=== PATIENT | female | born 1955 | race Caucasian/White ===

== ENCOUNTER 2016-10-08 18:58 | Inpatient (IN) | payer MEDICARE ==
--- NOTE | ~2016-10-08 | EKG ---
PATIENT: DAMON LEVI UNIT #: [id number] Ventricular Rate: 58 BPM Atrial Rate: 58 BPM P-R Interval: 176 ms QRS Duration: 112 ms Q-T Interval: 492 ms QTC Calculation(Bezet): 482 ms P [place]: 14 degrees Calculated R [place]: -9 degrees Calculated T [place]: 93 degrees Diagnosis Line: Sinus bradycardia Diagnosis Line: Abnormal QRS-T angle, consider primary T wave Diagnosis Line: abnormality Diagnosis Line: Abnormal ECG Diagnosis Line: Diagnosis Line: Confirmed by RUCHI YEN MD ([id number]) on Diagnosis Line: 10/10/2016 11:06:28 AM INTERPRETING MD: YOVANA CASTRO
--- NOTE | ~2016-10-08 | CT71 ---
[facility] A Service of [facility] RADIOLOGY TEXT RESULTS PATIENT: DAMON LEVI LOCATION: C4 457-01 : 53 UNIT #: [id number] AGE: [address]: Abiola Gibbs MD SEX: F ORDER DR: [id number] [facility] [address] [place], [place] [address] [id number] MR#: [id number] Acc #: [id number] NAME: DAMON LEVI. : 1955 SEX: F STUDY DATE/TIME: 10/08/2016 20:30 UNIT: CEDOF ROOM: [id number] STUDY DESCRIPTION: CT Head Wo Contrast Attending Physician: Cayla Ramires M.D. Ordering Physician: Jeovanny Jacobson M.D. Primary Care Physician: No Primary Care Physician MEDICAL IMAGING REPORT This report is preliminary unless electronic signature is present EXAM Head CT without contrast, 10/08/2016. HISTORY Altered mental status today, decreased level of consciousness, unresponsive with tremors beginning today. TECHNIQUE This CT exam was performed with one or more of the following radiation dose reduction techniques: automatic exposure control, adjustment of mA and/or kV according to patient size, and iterative reconstruction. FINDINGS Axial images of the brain obtained without contrast show generalized atrophy. There are chronic ischemic changes seen around the ventricles. There is no evidence of mass effect, hemorrhage, or edema and no midline shift is seen. No acute changes are noted. IMPRESSION Atrophy with chronic ischemic changes. No acute changes are seen. Dictated by... John Chicas M.D. THIS IS AN ELECTRONICALLY VERIFIED REPORT John Chicas M.D. at 10/09/2016 2:16 PM SHELL/donte TD: 10/09/2016 04:34 JOB #: [id number] [facility] A Service of [facility] RADIOLOGY TEXT RESULTS PATIENT: DAMON LEVI LOCATION: C4 457-01 : 53 UNIT #: [id number] AGE: [address]: Abiola Gibbs MD SEX: F ORDER DR: MEDICAL IMAGING REPORT Page 1 of 1 COPY
--- NOTE | ~2016-10-08 | CR72 ---
[facility] A Service of [facility] RADIOLOGY TEXT RESULTS PATIENT: DAMON LEVI LOCATION: [place] [address] : 53 UNIT #: [id number] AGE: [address]: Abiola Gibbs MD SEX: F ORDER DR: [id number] [facility] [address] [place], [place] [address] [id number] I MR#: [id number] Acc #: [id number] NAME: DAMON LEVI : 1955 SEX: F STUDY DATE/TIME: 10/08/2016 20:14 UNIT: CEDOF ROOM: 36275 STUDY DESCRIPTION: CR Chest Single View Portable Attending Physician: Cayla Ramires M.D. Ordering Physician: Jeovanny Jacobson M.D. Primary Care Physician: No Primary Care Physician MEDICAL IMAGING REPORT This report is preliminary unless electronic signature is present EXAM Portable chest, 10/08/2016. HISTORY Shortness of breath and weakness and altered mental status today. Benign essential hypertension. FINDINGS The heart is enlarged but stable compared with 04/09/2016. The lungs are clear despite poor inspiratory result. There are no pleural effusions. IMPRESSION Cardiomegaly. No active pulmonary disease. Dictated by... John Chicas M.D. THIS IS AN ELECTRONICALLY VERIFIED REPORT John Chicas M.D. at 10/09/2016 2:15 PM SHELL/donte TD: 10/09/2016 04:24 JOB #: [id number] MEDICAL IMAGING REPORT Page 1 of 1 COPY
--- NOTE | ~2016-10-08 | BMI ---
[facility] Nutrition Therapy DATE: 10/10/16 Patient: DAMON Davis GUMREET Physician: YANCY Address: [address] [place] [address] Room/Bed: [address] [place] [address], Zip: [place] [address] Admit Date: 10/08/16 Date of : 53 Height: Weight: 268 122 HIGH BMI NOTE: ANTHROPOMETRICS: HT: 67" WT: 122 KG BMI: 42.1 DIET: CONSISTENT CARBOHYDRATE RECOMMENDATIONS: 1. ADD HEART HEALTHY RESTRICTION TO CURRENT DIET TO PROMOTE GRADUAL WEIGHT LOSS TOWARDS IBW. Respectfully, TALI REYES RD, LD [facility] cc: client file
--- NOTE | ~2016-10-08 | HP ---
Unit #: [id number] #: [id number] Patient: DAMON LEVI [id number] [address] [address] [id number] I MR#: [id number] NAME: DAMON LEVI. ROOM: [facility] Age: 61 Sex: F Admission Date: 10/08/2016 : 1955 Attending Physician: Abiola Gibbs M.D. Primary Care Physician: No Primary Care Physician HISTORY AND PHYSICAL REASON FOR ADMISSION The patient was sent from the [place] [facility] for evaluation of change in mental status and tremors. HISTORY OF PRESENT ILLNESS This is a 61-year-old female, [place] [facility] resident, with a history of multiple medical problems, including coronary artery disease with numerous stents, history of congestive heart failure, chronic kidney disease, paroxysmal atrial fibrillation, anemia of chronic disease, chronic obstructive pulmonary disease, hypertension, dyslipidemia, peripheral vascular disease, diabetes, obstructive sleep apnea intolerant to CPAP, hypothyroid, obesity, history of seizures, depression, paroxysmal atrial fibrillation not on anticoagulation. She was sent from the [place] [facility] to the emergency room for evaluation of change in mental status and tremors. In the emergency room on workup she was found to have BUN 78, creatinine 1.8, urine culture with urinary tract infection. She has eventually been admitted for urinary tract infection and change in mental status. She is answering questions and opening eyes, saying I am fine. Otherwise she is not responding to other questions. PAST MEDICAL HISTORY 1. History of chronic systolic congestive heart failure with ejection fraction of 25%-30% in the past. 2. Chronic kidney disease. She usually follows with Dr. Michaud. 3. History of paroxysmal atrial fibrillation, not on chronic anticoagulation. 4. Anemia of chronic disease. 5. Hypertension. 6. Hyperlipidemia. 7. Diabetes type 2, insulin dependent. 8. Obstructive sleep apnea, not on CPAP. 9. Hypothyroidism. 10. Peripheral vascular disease, status post right pqpxf-rrb-uavj amputation. 11. History of obesity. 12. History of coronary artery disease with numerous stents. 13. History of valvular heart disease with mild to moderate mitral regurgitation and moderate tricuspid regurgitation. 14. Depression. 15. History of seizures. PAST SURGICAL HISTORY 1. Cholecystectomy. 2. Tubal ligation. Unit #: [id number] #: [id number] Patient: DAMON LEVI 3. Right fourth toe amputation. 4. Cyst removal from the back. 5. Right hokjv-hij-jvcq amputation. SOCIAL HISTORY She currently lives in the [place] [facility]. She has a history of smoking in the past. She declines smoking at this time. She has no history of illicit drug abuse. FAMILY HISTORY Mother had myocardial infarction, permanent pacemaker. Sister with coronary artery disease. Brother with myocardial infarction and open heart surgery. ALLERGIES No known drug allergies. PENITENTIARY MEDICATIONS 1. Hydrocodone 5/325 mg 1 tablet q.4 h. p.r.n. 2. NovoLog 3 units t.i.d. 3. Levemir 25 units at bedtime. 4. Nitrostat 0.4 mg sublingual p.r.n. 5. Zofran ODT 4 mg q.4-6 h. p.r.n. 6. Ventolin 1 puff q.6 h. p.r.n. 7. Baclofen 10 mg t.i.d. p.r.n. 8. Bumex 2 mg b.i.d. 9. Brilinta 19 mg subcutaneous b.i.d. 10. ProMod 30 mg t.i.d. 11. Colace 100 mg b.i.d. 12. Atorvastatin 40 mg at bedtime. 13. Amiodarone 200 mg daily. 14. Chewable aspirin 81 mg daily. 15. Multivitamin 1 tablet daily. 16. Nebulizer q.i.d. 17. Lyrica 50 mg t.i.d. 18. Levothyroxine 50 mcg daily. 19. Keppra 750 mg b.i.d. 20. Coreg 6.25 mg b.i.d. 21. Cymbalta 60 mg daily. 22. Ferrous sulfate 325 mg daily. REVIEW OF SYSTEMS Negative except for history of present illness. PHYSICAL EXAMINATION GENERAL: Elderly female lying in the bed comfortably, currently not in any distress. She is alert, awake and oriented times one. VITALS: Temperature 98.5, heart rate 69, respiratory rate 12, blood pressure 105/42, oxygen 98% on 2 liters. HEENT: Head is atraumatic, normocephalic. NECK: Supple. No jugular venous distension. No thyromegaly. LUNGS: Decreased air entry, but no rhonchi, no wheezing. HEART: S1 and S2. Regular rate and rhythm. ABDOMEN: Soft, nontender and nondistended. Bowel sounds positive. EXTREMITIES: Right ynuaq-ukg-mcdz amputation. Left leg no cyanosis, clubbing or edema. NEUROLOGIC: Alert, awake times one, unable to do neurologic exam secondary to the patient's cooperation. Unit #: [id number] #: [id number] Patient: DAMON LEVI DIAGNOSTIC STUDIES IMAGING: Chest x-ray shows cardiomegaly, otherwise no acute abnormality. CTA shows atrophy and chronic ischemic changes. LABORATORY: Today, sodium 138, potassium 4.6, chloride 103, CO2 30, glucose 155, BUN 78, creatinine 1.8, LFTs within normal limits. Lactic acid level 1.2. Urinalysis with turbid appearance, leukocytes positive, WBCs too numerous to count. INR 1, troponin less than 0.05, glucose 148, white count 7, hemoglobin 10, hematocrit 31, platelets 260. ASSESSMENT/PLAN 1. Change in mental status, most likely secondary to urinary tract infection. Will continue IV Rocephin. 2. Acute kidney injury on chronic kidney disease with a history of congestive heart failure. Will hold Bumex at this time and give 1 liter of IV fluids and reevaluate in the morning. 3. History of congestive heart failure. Ejection fraction 25%-30% as per previous old records. 4. History of coronary artery disease with numerous stents. 5. History of paroxysmal atrial fibrillation. Currently normal sinus rhythm. She is not on chronic anticoagulation. She is on amiodarone. 6. History of chronic obstructive pulmonary disease, oxygen dependent. Continue nebulizer. 7. Anemia of chronic disease. 8. Hypertension. 9. Dyslipidemia/peripheral vascular disease. Continue Lipitor. 10. Diabetes. While in the hospital hold Levemir and NovoLog and place on sliding scale. 11. History of obstructive sleep apnea. 12. Hypothyroid on Synthroid. Recheck TSH. 13. Obesity. 14. History of seizures. Continue Keppra. 15. History of depression on Cymbalta. 16. DVT prophylaxis. Will place the patient on Lovenox. Dictated by Whitney Matthews TD: 10/09/2016 07:17 JOB #: [id number] HISTORY AND PHYSICAL Page 1 of 1 X X HISTORY AND PHYSICAL
--- NOTE | ~2016-10-08 | DS ---
Unit #: [id number] #: [id number] Patient: DAMON LEVI [id number] [address] [address] [id number] I MR#: [id number] NAME: DAMON LEVI. ROOM: [facility] Age: 61 Sex: F Admission Date: 10/08/2016 : 1955 Discharge Date: 10/10/2016 Attending Physician: Triston Schwab M.D. DISCHARGE SUMMARY ADMISSION DIAGNOSES 1. Change in mental status likely secondary to urinary tract infection. 2. Acute kidney injury and chronic kidney disease with history of congestive heart failure. 3. History of systolic congestive heart failure. 4. History of coronary artery disease with numerous stent placements. 5. History of paroxysmal atrial fibrillation. 6. History of chronic obstructive pulmonary disease, on oxygen at two liters per minute per nasal cannula at nighttime. 7. Anemia of chronic disease. 8. Hypertension. 9. Dyslipidemia/peripheral vascular disease. 10. Diabetes. 11. History of obstructive sleep apnea. 12. Hypothyroidism. 13. Obesity. 14. History of seizures. 15. History of depression. DISCHARGE DIAGNOSES 1. Acute delirium on dementia. 2. Toxic metabolic encephalopathy secondary to urinary tract infection, resolved. 3. Gram-negative rylie urinary tract infection. 4. Acute kidney injury and chronic kidney disease, resolved. 5. History of systolic congestive heart failure, stable. 6. Anemia. 7. Chronic obstructive pulmonary disease, on oxygen at two liters per minute per nasal cannula at bedtime. 8. Obstructive sleep apnea, intolerant of CPAP. 9. Type 2 diabetes mellitus, noninsulin dependent. HEELER Dr. Saenz, Nephrology. PROCEDURES None. DIAGNOSTIC STUDIES LABORATORY: WBC 9, hemoglobin 9, hematocrit 28.2, and platelets 254,000. Sodium 142, potassium 4.4, chloride 104, CO2 of 28, glucose 92, BUN 73, creatinine 1.3, calcium 8.5, AST 19, ALT 20, alkaline phosphatase 90, bilirubin total 0.6, total protein 6.8, and albumin 2.8. Urine culture GNR greater than 100,000 CFU/mL, probable E. coli, final culture and Unit #: [id number] #: [id number] Patient: WETHINGTON,DAMON L sensitivity report pending. TSH 1.9. BNP 310. INR 1. IMAGING: CT of the head without contrast, impression: Atrophy with chronic ischemic changes. No acute changes seen. Portable chest x-ray, impression: Cardiomegaly. No active pulmonary disease. CONDITION Stable. DISPOSITION [facility] rehab as soon as patient's bed is available. Please note, [facility] and management of acute alteration in mental status and tremors. DISCHARGE MEDICATIONS 1. Proventil HFA 1 puff inhaled every 6 hours as needed for shortness of air. 2. Combivent 3 mL mini-neb inhaled q.i.d. 3. Amiodarone hydrochloride 200 mg p.o. daily. 4. Keppra 750 mg p.o. b.i.d. 5. Lyrica 50 mg p.o. t.i.d. 6. Cymbalta 60 mg p.o. daily. 7. Zofran 4 mg p.o. every 4-6 hours as needed for nausea. 8. Diphenhydramine cream topically as needed for itching. 9. Atorvastatin calcium 40 mg p.o. at bedtime. 10. Carvedilol 6.25 mg p.o. at bedtime. 11. ProMod 30 mL p.o. t.i.d. 12. Colace 100 mg p.o. b.i.d. 13. Bumetanide changed to 1 mg p.o. b.i.d. 14. NovoLog FlexPen 3 units subcutaneous t.i.d. with meals per regular schedule. 15. Levemir FlexTouch 25 units subcutaneous at bedtime. 16. Ferrous gluconate 324 mg p.o. daily. 17. Multivitamin with minerals 1 p.o. daily. 18. Aspirin 81 mg p.o. every 24 hours. 19. Hydrocodone and acetaminophen 5/325 mg tab 1 p.o. q.4 hours p.r.n. pain. Please note, patient was on this medication prior to transfer to the hospital. 20. Brilinta 90 mg p.o. b.i.d. 21. Lioresal 10 mg p.o. t.i.d. as needed for muscle spasm/low back pain. 22. Synthroid 50 mcg p.o. in the morning. 23. Nitrostat 0.4 mg SL p.r.n. chest pain q.5 minutes x3. 24. Keflex 500 mg p.o. q.8 hours x7 days (renal dose). DISCHARGE INSTRUCTIONS 1. Patient will be discharged back to rehab at (1) when bed available today. 2. Patient's order sheet is to faxed to the [facility] office to follow up on urine culture and sensitivity report. 3. Patient is to continue on constant carbohydrate with addition of healthy heart diet. 4. Patient will call and schedule a followup appointment with Dr. Michaud/Dany of the nephrology service per their recommendations. HOSPITAL COURSE The patient is a 61-year-old female who presented to [facility] on the date of admission for further evaluation and management of change in mental status associated with tremors. Based on Unit #: [id number] #: [id number] Patient: DAMON LEVI after school caregiver's note, the patient has been receiving rehab services at the facility. A CT of the head was performed which did not reveal any acute changes. The patient's urine preliminary culture has returned positive for probable GNR infection. The patient was started on Rocephin 1 gram IV in the emergency department. Patient's creatinine was noted to be somewhat elevated at 1.8; therefore, Nephrology was consulted for her management. Please refer to History and Physical report for complete details. The patient is awake, alert, and oriented x3 this morning. She has eaten all of her breakfast and has no complaints at this time. She has been evaluated by Dr. Michaud of the nephrology service who has recommended a decrease in daily dose of Bumex from 2 mg p.o. b.i.d. to the new dose of 1 mg p.o. b.i.d. He has given clearance for her to return to [facility]. The patient has also been evaluated by Dr. Schwab of the hospitalist service and given the discharge order for her to return to rehab later today and when a bed is available. Dictated by... Cadence Day A.P.R.N. for Whitney Cooper TD: 10/10/2016 17:26 JOB #: [id number] DISCHARGE SUMMARY Page 1 of 1 X Cadence Day APRN DISCHARGE SUMMARY
[~2016-10-08 18:58] MED LIST: ACETAMINOPHEN PO; AL-MAG HYDROX-S30 M1 PO; ALBUTEROL17 GM INH; ALDACTONE25 MG PO; AMIODARONE PO; AMITRYPTYLINE PO; ASPIR-TRIN325 MG PO; ASPIRIN PO; ASPIRIN81 M1 PO; ASPIRIN81 MG PO; ATRAC-TAIN142 GM EXT; AUGMENTIN875 MG PO; AVANDIA PO; BACTRIM DS TABL1 TA1 PO; BENZONATATE PO; BRILINTA90 MG PO; BUMEX2 MG PO; CARBATROL300 MG PO; CARDIZEM SR PO; CELEXA PO; CELEXA20 MG PO; CERTAGEN PO; CLARITIN10 MG PO; CORDARONE200 M1 PO; COREG6.25 M1 PO; COREG6.25 MG PO; COUMADIN PO; DAKIN'S MODIF1000 ML EXT; DESITIN DIAPER113 GM TOP; DIABETA5 M1 PO; FEMHRT 0.5 MG/21 TAB PO; FERROUS GLUCON324 MG PO; FISH OIL 1,0001 CAP PO; FISH OIL300 MG PO; FLAGYL PO; FLONASE 0.05% N16 G1; FOLIC ACID PO; GLUCOTROL PO; HCTZ PO; HUMULIN N100 U/ML SQ; HYDRALAZINE HCL25 MG PO; HYDROCHLOROTHIA25 MG PO; HYDROCODONE-APA1 T55 PO; HYDROCODONE-APA1 T61 PO; IPRAT-ALBUT 0.5-3 ML INH; KEPPRA750 M1 PO; LANOXIN PO; LASIX PO; LEVEMIR FL100 UNIT/1 SQ; LEVEMIR SUBQ; LEVEMIR100 U/ML SUBQ; LEVOTHROID50 MCG PO; LIPITOR PO; LISINOPRIL PO; LOMOTIL WHITE2.5 MG PO; LORTAB 5/500 TA1 TA1 PO; LOVENOX30 MG/0.3 INJ; LYRICA50 MG PO; MELATONIN3 M4 PO; MERREM500 MG INJ; MICRONASE5 M1 PO; MULTI-VITAMIN1 TAB PO; MULTIVITAMIN1 UDCAP PO; MYLANTA GAS80 M1 PO; NASACORT AQ16.5 GM; NITROSTAT0.4 MG SL; NOVOLIN 70/30 V10 ML INJ; NOVOLOG100 U/ML SUBQ; NOVOLOG7030 SUBQ; OMEPRAZOLE20 M2 PO; PHENERGAN25 M1 PO; PRAVACHOL PO; PREDNISONE10 MG/DOSE PO; PROAIR HFA8.5 GM IH; SANTYL15 G1 TP; SYMBICORT INH; SYNTHROID PO; SYNTHROID0.05 MG PO; TIROSINT25 MCG PO; TOFRANIL PO; TOPAMAX PO; TOPROL XL PO; TYLENOL/CODEINE1 TAB PO; UNIVASC7.5 MG PO; VASOLEX OINTMEN30 GM TP; ZOFRAN ODT4 MG PO; ZYRTEC PO
[2016-10-08 19:58] LABS: BASOPHIL# 0.1 X10e3 (0-0.3); BASOPHIL% 1.1 % (0-2.5); EOSINOPHIL# 0.9 X10e3 (0-0.7); EOSINOPHIL% 10.9 % (0.0-7.0); HEMATOCRIT 31.1 % (35.0-45.0); LYMPHOCYTE# 1.6 X10e3 (1.0-3.5); LYMPHOCYTE% 19.8 % (17.0-45.0); MEAN CORPUSCULAR HEMOGLOBIN 26.7 PG (28-34); MEAN CORPUSCULAR HGB CONC 32.1 g/dL (30-36); MEAN PLATELET VOLUME 9.7 FL (6.5-11.5); MONOCYTE# 0.6 X10e3 (0-1.0); NEUTROPHIL# 4.9 X10e3 (1.5-7.1); NEUTROPHIL% 61.2 % (40-75); PLATELET COUNT 260 X10e3 (140-420); RED BLOOD COUNT 3.75 X10e (3.90-5.30); RED CELL DISTRIBUTION WIDTH 15.6 % (11.0-15.5); WHITE BLOOD COUNT 7.9 X10e3 (4.0-10.5)
[2016-10-08 20:03] LABS: DIFF IND NO
[2016-10-08 20:11] LABS: POC - CKMB 3.1 ng/mL (0.0-7.9); POC - TROPONIN <0.05 ng/mL (<=0.05)
[2016-10-08 20:12] LABS: PARTIAL THROMBOPLASTIN TIME 27.1 SECONDS (23.5-31.3); PROTHROMBIN TIME (PATIENT) 11.3 SECONDS (10.0-11.7); URINE SOURCE CLEAN CATCH
[2016-10-08 20:17] LABS: URINE APPEARANCE TURBID; URINE BILIRUBIN NEG (NEG); URINE BLOOD 2+ (NEG); URINE COLOR YELLOW; URINE GLUCOSE NEG (NEG); URINE KETONE NEG (NEG); URINE LEUKOCYTE ESTERASE 3+ (NEG); URINE NITRATE NEG (NEG); URINE PROTEIN NEG (NEG); URINE SPECIFIC GRAVITY 1.008 (1.003-1.035); URINE UROBILINOGEN 0.2 MG/DL (NEG)
[2016-10-08 20:20] LABS: CULTURE INDICATED? YES; URINE BACTERIA AUWI 4+ (NEGATIVE); URINE SQUAMOUS EPITHELIAL CELL FEW /[HPF]; UWBCS1 AUWI INNUM (0-5)
[2016-10-08 20:36] LABS: BILIRUBIN, DIRECT 0.1 mg/dL (0.0-0.2); BILIRUBIN,INDIRECT 0.3 mg/dL (0.0-0.9); BILIRUBIN,TOTAL 0.4 mg/dL (0.2-2.0); BUN/CREATININE RATIO 43.33; CALCIUM SERUM 8.6 mg/dL (8.4-10.2); CREATININE SERUM 1.8 mg/dL (0.6-1.4); GLOM FILT RATE Estimated 29.6 mL/min (>60); POTASSIUM 4.6 mmol/L (3.5-5.1); PROTEIN TOTAL SERUM 7.5 g/dL (6.0-8.3)
[2016-10-08] MEDS ORDERED: LEVOTHYROXINE50 MC1 PO (21:11)
[2016-10-08] MEDS ORDERED: KEPPRA750 M1 PO (21:11)
[2016-10-08] MEDS ORDERED: FERROUS GLUCON324 MG PO (21:12)
[2016-10-08] MEDS ORDERED: DULOXETINE HCL60 MG PO (21:12)
[2016-10-08] MEDS ORDERED: CARVEDILOL6.25 MG PO (21:12)
[2016-10-08] MEDS ORDERED: MULTIVITAMINS1 EAC3 PO (21:13)
[2016-10-08] MEDS ORDERED: AMIODARONE HCL200 MG PO (21:13)
[2016-10-08] MEDS ORDERED: CHEWABLE ASPIRI81 MG PO (21:13)
[2016-10-08] MEDS ORDERED: PROMOD946 ML PO (21:14)
[2016-10-08] MEDS ORDERED: BUMEX2 MG PO (21:14)
[2016-10-08] MEDS ORDERED: BRILINTA90 MG PO (21:14)
[2016-10-08] MEDS ORDERED: LYRICA50 MG PO (21:14)
[2016-10-08] MEDS ORDERED: IPRAT-ALBUT 0.5-3 ML INH (21:14)
[2016-10-08] MEDS ORDERED: ATORVASTATIN CA40 MG PO (21:15)
[2016-10-08] MEDS ORDERED: DOCUSATE SODIU100 MG PO (21:15)
[2016-10-08] MEDS ORDERED: ONDANSETRON HCL4 M1 PO (21:16)
[2016-10-08] MEDS ORDERED: NITROSTAT0.4 MG SL (21:16)
[2016-10-08] MEDS ORDERED: ALBUTEROL17 GM INH (21:17)
[2016-10-08] MEDS ORDERED: LIORESAL10 MG PO (21:17)
[2016-10-08] MEDS ORDERED: ANTI-ITCH30 GM TOP (21:18)
[2016-10-08] MEDS ORDERED: HYDROCODON-ACE1 EAC7 PO (21:19)
[2016-10-08] MEDS ORDERED: NOVOLOG FL100 UNIT/1 SUBQ (21:19)
[2016-10-08] MEDS ORDERED: LEVEMIR FL100 UNIT/1 SUBQ (21:20)
[2016-10-08 23:34] LABS: BASOPHIL# 0.1 X10e3 (0-0.3); EOSINOPHIL# 0.8 X10e3 (0-0.7); EOSINOPHIL% 9.8 % (0.0-7.0); HEMATOCRIT 30.7 % (35.0-45.0); HEMOGLOBIN 9.7 gm/dL (12.0-16.0); LYMPHOCYTE# 1.6 X10e3 (1.0-3.5); LYMPHOCYTE% 18.9 % (17.0-45.0); MEAN CELL VOLUME 82.3 FL (83-96); MEAN CORPUSCULAR HEMOGLOBIN 26.1 PG (28-34); MEAN CORPUSCULAR HGB CONC 31.7 g/dL (30-36); MEAN PLATELET VOLUME 9.1 FL (6.5-11.5); MONOCYTE# 0.6 X10e3 (0-1.0); MONOCYTE% 7.1 % (3.0-12.0); NEUTROPHIL# 5.3 X10e3 (1.5-7.1); NEUTROPHIL% 63.2 % (40-75); PLATELET COUNT 244 X10e3 (140-420); RED BLOOD COUNT 3.73 X10e (3.90-5.30); RED CELL DISTRIBUTION WIDTH 15.7 % (11.0-15.5); WHITE BLOOD COUNT 8.4 X10e3 (4.0-10.5)
[2016-10-08 23:41] LABS: DIFF IND NO
[2016-10-09 09:45] LABS: BUN/CREATININE RATIO 44.66; CALCIUM SERUM 8.7 mg/dL (8.4-10.2); CREATININE SERUM 1.5 mg/dL (0.6-1.4); POTASSIUM 4.2 mmol/L (3.5-5.1)
[2016-10-10 03:03] LABS: HEMATOCRIT 28.2 % (35.0-45.0); MEAN CELL VOLUME 83.2 FL (83-96); MEAN CORPUSCULAR HEMOGLOBIN 26.6 PG (28-34); MEAN CORPUSCULAR HGB CONC 31.9 g/dL (30-36); MEAN PLATELET VOLUME 9.5 FL (6.5-11.5); RED BLOOD COUNT 3.39 X10e (3.90-5.30); RED CELL DISTRIBUTION WIDTH 15.9 % (11.0-15.5)
[2016-10-10 03:35] LABS: ALBUMIN SERUM 2.8 g/dL (3.5-5.0); BILIRUBIN,TOTAL 0.6 mg/dL (0.2-2.0); BUN/CREATININE RATIO 56.15; CALCIUM SERUM 8.5 mg/dL (8.4-10.2); CREATININE SERUM 1.3 mg/dL (0.6-1.4); GLOM FILT RATE Estimated 43.9 mL/min (>60); POTASSIUM 4.4 mmol/L (3.5-5.1); PROTEIN TOTAL SERUM 6.8 g/dL (6.0-8.3)
== END 2016-10-10 22:27 | DRG 682 ==
LOC: CED 18:58 → CEDOF 21:48 → C4B 21:48 → CEDOF 22:03 → CED 22:03 → CEDOF 10-09 05:17 → C4B 10-09 07:00 → CEDOF 10-09 07:00 → C4B 10-10 05:45
PROVIDERS: Emergency Medicine; Family Medicine
DX: N17.9 Acute kidney failure, unspecified (principal); G92 Toxic encephalopathy; I13.0 Hypertensive heart and chronic kidney disease with heart failure and stage 1 through stage 4 chronic kidney disease, or unspecified chronic kidney disease; I50.22 Chronic systolic (congestive) heart failure; E11.22 Type 2 diabetes mellitus with diabetic chronic kidney disease; F03.90 Unspecified dementia, unspecified severity, without behavioral disturbance, psychotic disturbance, mood disturbance, and anxiety; F05 Delirium due to known physiological condition; I48.0 Paroxysmal atrial fibrillation; G40.909 Epilepsy, unspecified, not intractable, without status epilepticus; N39.0 Urinary tract infection, site not specified; Z79.4 Long term (current) use of insulin; G47.33 Obstructive sleep apnea (adult) (pediatric); I73.9 Peripheral vascular disease, unspecified; Z89.511 Acquired absence of right leg below knee; I25.10 Atherosclerotic heart disease of native coronary artery without angina pectoris; Z95.5 Presence of coronary angioplasty implant and graft; I08.1 Rheumatic disorders of both mitral and tricuspid valves; F32.9 Major depressive disorder, single episode, unspecified; J44.9 Chronic obstructive pulmonary disease, unspecified; E66.9 Obesity, unspecified; Z90.49 Acquired absence of other specified parts of digestive tract; Z98.51 Tubal ligation status; Z89.421 Acquired absence of other right toe(s); Z87.891 Personal history of nicotine dependence; Z99.81 Dependence on supplemental oxygen; D63.1 Anemia in chronic kidney disease; E03.9 Hypothyroidism, unspecified; N18.3 Chronic kidney disease, stage 3 (moderate)
CPT/HCPCS: 36415; 51701; 70450; 71010; 80048; 80053; 80076; 81003; 82553; 82947; 83605; 83880; 84443; 84484; 85025; 85027; 85610; 85730; 87086; 87088; 87186; 93005; 94640; 94760; 96360; 99285; J0696; J1650; J1815